=== PATIENT | female | born 1975 | race Caucasian/White ===

== ENCOUNTER → 2017-12-14 | Outpatient (CLI) | payer OTHER ==
--- NOTE | 2017-12-14 11:37 | Diagnostic Imaging Report ---
EXAMINATION: MRI of the cervical spine without contrast HISTORY: Neck pain and shoulder pain COMPARISON: None. TECHNIQUE: Sagittal T1, T2, STIR; axial T2, gradient echo. FINDINGS: Curvature: Normal lordosis. Minimal retrolistheses at C4-C5. Vertebrae: No evidence of neoplasm, infection, or fracture. Shallow Schmorl nodes in the partially visualized T2 and T3 superior endplates. Foramen magnum: No mass, Chiari malformation, or basilar invagination. Spinal Cord: Normal size and signal intensity. Soft Tissues: Unremarkable. Degenerative changes: C1-C2: Mild degenerative changes without stenosis. C2-C3: Fusion of the vertebral bodies and posterior elements, likely congenital, without stenoses. C3-C4: Mild facet arthrosis without canal or foraminal stenoses. C4-C5: Unremarkable . C5-C6: Small disc osteophyte complex formation, bilateral uncovertebral and facet osteoarthrosis. Mild bilateral foraminal stenoses. C6-C7: Disc osteophyte complex formation, bilateral uncovertebral and facet arthrosis. Mild canal and foraminal narrowing mainly on the right side. C7-T1: Unremarkable IMPRESSION: 1. 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 2. Mild degenerative bilateral foraminal stenosis at C5-C6. 3. Mild degenerative canal and foraminal narrowing at C6-C7. Signed by: Dr. Elvira Joe M.D. on 12/14/2017 11:33 AM
== END ==
LOC: MRI 09:43
PROVIDERS: ATTEND Family Medicine
DX: M54.2 Cervicalgia (principal); M50.30 Other cervical disc degeneration, unspecified cervical region
CPT/HCPCS: 72141